=== PATIENT | male | born 1970 | race African-American/Black ===

== ENCOUNTER 2016-10-11 23:56 | Emergency (ER) | payer OTHER ==
[~2016-10-11] VITALS: Ht 175.3 cm; Wt 120.0 kg
[2016-10-12] MEDS ORDERED: AMLO2.5T45 PO (00:19)
[2016-10-12 01:28] VITALS: BP 140/85
== END 2016-10-12 01:33 | disposition home or self-care (01) ==
LOC: ER 10-12 00:34
DX: I10 Essential (primary) hypertension (principal)
CPT/HCPCS: 99283